=== PATIENT | male | born 1985 | race Two or more races ===

== ENCOUNTER 2024-09-04 22:33 | Emergency (ER) | payer SELFPAY ==
[2024-09-04 22:36] VITALS: PULSE 99; RESP 22; O2SAT 98
[2024-09-04 22:38] VITALS: BP 125/63; PULSE 100; RESP 19; TEMP 36.9; O2SAT 97
--- NOTE | 2024-09-04 23:25 | PC.NURSE ---
2326 PT WALKED OUT OF AMBULANCE BAY AT THIS TIME. PT WAS NOT SI OR HI DID NOT WANT TO BE SEEN BY PROVIDER.
== END 2024-09-04 22:45 | disposition left against medical advice (07) ==
PROVIDERS: Emergency Provider Emergency Medicine
DX: Z53.21 Procedure and treatment not carried out due to patient leaving prior to being seen by health care provider (principal)
CPT/HCPCS: 99281